=== PATIENT | male | born 1935 | race Caucasian/White ===

== ENCOUNTER 2016-08-02 07:40 | Emergency (ER) | payer MEDICAID ==
[~2016-08-02] VITALS: Ht 170.2 cm; Wt 85.0 kg
[~2016-08-02 07:40] MED LIST: ATOR10TA69 PO; DEXT15DR5 EACHEYE; DONE5TAB33 PO; HYDR-523 PO; IBUP-1510 PO; LAMO25TA4 PO; LOV40 SQ; OLAN5TAB3 PO; OMEP20CA4 PO; ONDA4TAB5 IVP; PHEN100C4 PO; PHEN64.8 PO; PRAV20TA57 PO; ZOLP5TAB8 PO
[2016-08-02] MEDS ORDERED: LORAZEPAM 2MG/ML CPJ IV PRN (08:00)
[2016-08-02 08:38] LABS: BASOPHILS % 0.4 % (0.0-2.0); HEMATOCRIT. 39.2 % (42.0-52.0); HEMOGLOBIN. 13.6 g/dL (14.0-18.0); LYMPHOCYTES % 12.5 % (20.0-50.0); MEAN CORPUSCULAR HEMOGLOBIN 29.5 pg (28.0-32.0); MEAN CORPUSCULAR HGB CONC 34.7 g/dL (31.0-37.0); MEAN PLATELET VOLUME 7.8 fl (7.4-10.4); MONOCYTES % 7.1 % (2.0-8.0); PLATELET 216 x1000/uL (130-400); RED BLOOD CELL COUNT 4.61 mill/uL (4.7-6.1); RED CELL DISTRIBUTION WIDTH 13.6 % (11.6-14.6); WHITE BLOOD COUNT 7.1 x1000/uL (4.5-11.0)
[2016-08-02 08:55] LABS: ANION GAP 13; CALCIUM 8.7 mg/dL (8.5-10.1); CARBON DIOXIDE 28 mEq/L (21-32); CHLORIDE 96 mEq/L (98-107); UREA NITROGEN BLOOD 28 mg/dL (7-21); eGFR > 60 mL/min (>60)
[2016-08-02 08:56] LABS: ALANINE AMINOTRANSFERASE 57 IU/L (13-61); ALBUMIN 3.8 g/dL (3.4-5.0); ETHANOL BLOOD < 10 mg/dL; INDEX HEMOLYSI 1 (1-3); INDEX ICTERIC 1 (1-4); INDEX LIPEMIC 1 (1-3); PHENOBARBITAL 6.7 ug/mL (15.0-40.0); PHENYTOIN 5.2 ug/mL (10-20)
[2016-08-02] MEDS ORDERED: PHENYTOIN SODIUM EXTENDED 100MG CAPSULE PO ONE (09:45)
[2016-08-02] MEDS ORDERED: SODIUM CHLORIDE 0.9% 1,000 ML IV ONE (09:45)
[2016-08-02 13:00] VITALS: BP 110/74
== END 2016-08-02 13:40 ==
LOC: ER 07:56
DX: R56.9 Unspecified convulsions (principal); F41.9 Anxiety disorder, unspecified; E78.00 Pure hypercholesterolemia, unspecified; F03.90 Unspecified dementia, unspecified severity, without behavioral disturbance, psychotic disturbance, mood disturbance, and anxiety; I10 Essential (primary) hypertension; Z79.1 Long term (current) use of non-steroidal anti-inflammatories (NSAID); Z79.899 Other long term (current) drug therapy
CPT/HCPCS: 36415; 80053; 80184; 80185; 85025; 96360; 96361; 99285; G0482; J7030; Z7610

== ENCOUNTER 2016-08-10 07:26 | Emergency (ER) | payer MEDICAID ==
[~2016-08-10] VITALS: Ht 170.2 cm; Wt 75.0 kg
[2016-08-10 08:42] LABS: CARBON DIOXIDE 30 mEq/L (21-32); CHLORIDE 100 mEq/L (98-107); ETHANOL BLOOD < 10 mg/dL; PHENOBARBITAL 14.6 ug/mL (15.0-40.0); PHENYTOIN 6.8 ug/mL (10-20)
[2016-08-10 08:43] LABS: BASOPHILS % 0.6 % (0.0-2.0); EOSINOPHILS % 3.1 % (0.0-5.0); HEMATOCRIT. 39.1 % (42.0-52.0); HEMOGLOBIN. 13.5 g/dL (14.0-18.0); LYMPHOCYTES % 16.9 % (20.0-50.0); MEAN CORPUSCULAR HEMOGLOBIN 30.1 pg (28.0-32.0); MEAN CORPUSCULAR VOLUME 87.2 fL (80.0-94.0); MEAN PLATELET VOLUME 7.5 fl (7.4-10.4); NEUTROPHILS % 71.4 % (40.0-76.0); PLATELET 271 x1000/uL (130-400); RED BLOOD CELL COUNT 4.49 mill/uL (4.7-6.1); RED CELL DISTRIBUTION WIDTH 13.6 % (11.6-14.6)
[2016-08-10 11:40] VITALS: BP 120/82
== END 2016-08-10 11:50 | disposition home or self-care (01) ==
LOC: ER 07:38
DX: F41.9 Anxiety disorder, unspecified (principal); I10 Essential (primary) hypertension; E78.00 Pure hypercholesterolemia, unspecified; F03.90 Unspecified dementia, unspecified severity, without behavioral disturbance, psychotic disturbance, mood disturbance, and anxiety; Z79.899 Other long term (current) drug therapy
CPT/HCPCS: 36415; 80053; 80184; 80185; 85025; 99284; G0482; Z7610

== ENCOUNTER 2017-02-27 01:19 | Emergency (ER) | payer MEDICAID ==
[~2017-02-27] VITALS: Ht 175.3 cm; Wt 82.0 kg
[~2017-02-27 01:19] MED LIST changes: -IBUP-1510 PO; +IBUP-2030 PO
[2017-02-27 03:36] LABS: BASOPHILS % 0.8 % (0.0-2.0); EOSINOPHILS % 2.6 % (0.0-5.0); HEMATOCRIT. 38.4 % (42.0-52.0); HEMOGLOBIN. 13.2 g/dL (14.0-18.0); LYMPHOCYTES % 11.3 % (20.0-50.0); MEAN CORPUSCULAR HEMOGLOBIN 30.1 pg (28.0-32.0); MEAN CORPUSCULAR VOLUME 87.1 fL (80.0-94.0); MEAN PLATELET VOLUME 7.7 fl (7.4-10.4); MONOCYTES % 10.5 % (2.0-8.0); NEUTROPHILS % 74.8 % (40.0-76.0); PLATELET 179 x1000/uL (130-400); RED BLOOD CELL COUNT 4.41 mill/uL (4.7-6.1); RED CELL DISTRIBUTION WIDTH 14.6 % (11.6-14.6)
[2017-02-27 03:43] LABS: PROTHROMBIN TIME 10.7 sec (9.4-11.6)
[2017-02-27 03:52] LABS: CARBON DIOXIDE 28 mEq/L (21-32); CHLORIDE 99 mEq/L (98-107); TROPONIN I < 0.02 ng/mL (0.00-0.04)
[2017-02-27 07:24] VITALS: BP 126/71
[2017-02-27 07:37] LABS: CLARITY URINE CLEAR (CLEAR); COLOR URINE YELLOW (YELLOW); KETONES URINE NEGATIVE (NEGATIVE); LEUKOCYTE ESTERASE URINE NEGATIVE (NEGATIVE); NITRITE URINE NEGATIVE (NEGATIVE); OCCULT BLOOD URINE NEGATIVE (NEGATIVE); PH URINE 6.5 (4.5-8.0); PROTEIN URINE NEGATIVE (NEGATIVE); UROBILINOGEN URINE 0.2 E.U./dL (0.2-1.0)
== END 2017-02-27 07:57 | disposition home or self-care (01) ==
LOC: ER 01:19
DX: K57.30 Diverticulosis of large intestine without perforation or abscess without bleeding (principal); R56.9 Unspecified convulsions; F20.9 Schizophrenia, unspecified; I10 Essential (primary) hypertension; E78.00 Pure hypercholesterolemia, unspecified; F03.90 Unspecified dementia, unspecified severity, without behavioral disturbance, psychotic disturbance, mood disturbance, and anxiety; F41.9 Anxiety disorder, unspecified
CPT/HCPCS: 36415; 74177; 80053; 81003; 83690; 83880; 84484; 85025; 85610; 93005; 99285; Z7610

== ENCOUNTER 2017-03-10 10:59 | Emergency (ER) | payer MEDICAID ==
[~2017-03-10] VITALS: Ht 175.3 cm; Wt 75.0 kg
[2017-03-10 11:27] VITALS: BP 117/63
[2017-03-10 11:33] LABS: CLARITY URINE CLEAR (CLEAR); COLOR URINE YELLOW (YELLOW); KETONES URINE NEGATIVE (NEGATIVE); LEUKOCYTE ESTERASE URINE NEGATIVE (NEGATIVE); NITRITE URINE NEGATIVE (NEGATIVE); OCCULT BLOOD URINE NEGATIVE (NEGATIVE); PH URINE 6.5 (4.5-8.0); PROTEIN URINE NEGATIVE (NEGATIVE); SPECIFIC GRAVITY URINE 1.016 (1.005-1.030)
[2017-03-10 11:40] LABS: BASOPHILS % 0.7 % (0.0-2.0); EOSINOPHILS % 1.9 % (0.0-5.0); HEMATOCRIT. 38.6 % (42.0-52.0); HEMOGLOBIN. 13.2 g/dL (14.0-18.0); LYMPHOCYTES % 26.7 % (20.0-50.0); MEAN CORPUSCULAR HEMOGLOBIN 29.2 pg (28.0-32.0); MEAN CORPUSCULAR VOLUME 85.4 fL (80.0-94.0); MEAN PLATELET VOLUME 6.9 fl (7.4-10.4); MONOCYTES % 11.4 % (2.0-8.0); NEUTROPHILS % 59.3 % (40.0-76.0); PLATELET 289 x1000/uL (130-400); RED BLOOD CELL COUNT 4.52 mill/uL (4.7-6.1); RED CELL DISTRIBUTION WIDTH 14.1 % (11.6-14.6)
[2017-03-10 11:54] LABS: CARBON DIOXIDE 31 mEq/L (21-32); CHLORIDE 100 mEq/L (98-107); ETHANOL BLOOD < 10 mg/dL
[2017-03-10 12:05] LABS: *AMPHETAMINES SCREEN URINE NEGATIVE (NEGATIVE); *BARBITURATES SCREEN URINE PRESUMTIVE POSITIVE (NEGATIVE); *BENZODIAZEPINES SCREEN URINE NEGATIVE (NEGATIVE); *COCAINE SCREEN URINE NEGATIVE (NEGATIVE); CANNABINOID URINE SCREEN NEGATIVE (NEGATIVE); METHADONE URINE SCREEN NEGATIVE (NEGATIVE); OPIATES URINE SCREEN NEGATIVE (NEGATIVE); PHENCYCLIDINE URINE SCREEN NEGATIVE (NEGATIVE)
== END 2017-03-10 13:07 | disposition home or self-care (01) ==
LOC: ER 11:38
DX: H60.91 Unspecified otitis externa, right ear (principal); F41.0 Panic disorder [episodic paroxysmal anxiety]; E16.2 Hypoglycemia, unspecified; F20.9 Schizophrenia, unspecified; I10 Essential (primary) hypertension; E78.00 Pure hypercholesterolemia, unspecified; F03.90 Unspecified dementia, unspecified severity, without behavioral disturbance, psychotic disturbance, mood disturbance, and anxiety; F13.10 Sedative, hypnotic or anxiolytic abuse, uncomplicated; G40.909 Epilepsy, unspecified, not intractable, without status epilepticus
CPT/HCPCS: 36415; 80053; 80305; 81003; 82962; 85025; 99284; G0482

== ENCOUNTER 2017-05-02 21:30 | Emergency (ER) | payer MEDICAID ==
[~2017-05-02] VITALS: Ht 165.1 cm; Wt 64.0 kg
[2017-05-03] MEDS ORDERED: AMOXICILLIN/POTASSIUM CLAVULANATE 875/125MG TAB PO ONE (01:45)
[2017-05-03] MEDS ORDERED: IBUPROFEN 600MG TABLET PO ONE (01:45)
[2017-05-03 03:53] VITALS: BP 126/63
== END 2017-05-03 05:13 | disposition home or self-care (01) ==
LOC: ER 21:37
DX: H66.90 Otitis media, unspecified, unspecified ear (principal); E78.00 Pure hypercholesterolemia, unspecified; F03.90 Unspecified dementia, unspecified severity, without behavioral disturbance, psychotic disturbance, mood disturbance, and anxiety; F20.9 Schizophrenia, unspecified; G40.909 Epilepsy, unspecified, not intractable, without status epilepticus; Z79.899 Other long term (current) drug therapy
CPT/HCPCS: 70486; 93005; 99284; Z7610

== ENCOUNTER 2017-06-14 07:27 | Emergency (ER) | payer MEDICAID ==
[~2017-06-14] VITALS: Ht 170.2 cm; Wt 90.0 kg
[2017-06-14] MEDS ORDERED: SODIUM CHLORIDE 0.9% 1,000 ML IV ONE (07:56)
[2017-06-14 08:22] LABS: KETONES URINE NEGATIVE (NEGATIVE); LEUKOCYTE ESTERASE URINE NEGATIVE (NEGATIVE); NITRITE URINE NEGATIVE (NEGATIVE); OCCULT BLOOD URINE NEGATIVE (NEGATIVE); PROTEIN URINE TRACE (NEGATIVE); SPECIFIC GRAVITY URINE 1.023 (1.005-1.030)
[2017-06-14 08:33] LABS: CLARITY URINE CLEAR (CLEAR); COLOR URINE YELLOW (YELLOW)
[2017-06-14 08:54] LABS: *AMPHETAMINES SCREEN URINE NEGATIVE (NEGATIVE); *BARBITURATES SCREEN URINE PRESUMTIVE POSITIVE (NEGATIVE); *BENZODIAZEPINES SCREEN URINE NEGATIVE (NEGATIVE); *COCAINE SCREEN URINE NEGATIVE (NEGATIVE)
[2017-06-14 08:55] LABS: CANNABINOID URINE SCREEN NEGATIVE (NEGATIVE); METHADONE URINE SCREEN NEGATIVE (NEGATIVE); OPIATES URINE SCREEN NEGATIVE (NEGATIVE); PHENCYCLIDINE URINE SCREEN NEGATIVE (NEGATIVE)
[2017-06-14] MEDS ORDERED: ONDANSETRON HCL 4MG/2ML VIAL IV ONE (09:00)
[2017-06-14 09:10] LABS: BASOPHILS % 0.4 % (0.0-2.0); CHLORIDE 93 mEq/L (98-107); EOSINOPHILS % 0.2 % (0.0-5.0); LYMPHOCYTES % 9.5 % (20.0-50.0); MEAN CORPUSCULAR HEMOGLOBIN 29.6 pg (28.0-32.0); MEAN CORPUSCULAR VOLUME 84.1 fL (80.0-94.0); MONOCYTES % 6.8 % (2.0-8.0); NEUTROPHILS % 83.1 % (40.0-76.0); PLATELET 243 x1000/uL (130-400); RED CELL DISTRIBUTION WIDTH 14.1 % (11.6-14.6)
[2017-06-14 09:14] LABS: ETHANOL BLOOD < 10 mg/dL
[2017-06-14 09:17] LABS: PHENOBARBITAL 8.9 ug/mL (15.0-40.0)
[2017-06-14 09:26] LABS: CARBAMAZEPINE < 0.5 ug/mL (4-12)
[2017-06-14] MEDS ORDERED: POTASSIUM CHLORIDE 20MEQ TABLET SR PO ONE (09:30)
[2017-06-14] MEDS ORDERED: PHENYTOIN SODIUM 1,000 MG in SODIUM CHLORIDE 0.9% 100 ML IV ONE (10:00)
[2017-06-14 15:35] VITALS: BP 108/78
== END 2017-06-14 15:55 | disposition home or self-care (01) ==
LOC: ER 07:41
DX: R56.9 Unspecified convulsions (principal); E87.6 Hypokalemia; H70.90 Unspecified mastoiditis, unspecified ear; F20.9 Schizophrenia, unspecified; F03.90 Unspecified dementia, unspecified severity, without behavioral disturbance, psychotic disturbance, mood disturbance, and anxiety; E78.00 Pure hypercholesterolemia, unspecified; Z98.890 Other specified postprocedural states
CPT/HCPCS: 36415; 70450; 71045; 80053; 80156; 80165; 80184; 80185; 80305; 81003; 85025; 93005; 96361; 96365; 96375; 99285; G0482; J1165; J2405; J7030; J7050

== ENCOUNTER 2017-10-20 07:29 | Emergency (ER) | payer MEDICAID, OTHER ==
[~2017-10-20] VITALS: Ht 167.6 cm; Wt 82.0 kg
[2017-10-20] MEDS ORDERED: PHENYTOIN SODIUM 100MG/2ML VIAL IV ONE (08:15)
[2017-10-20] MEDS ORDERED: LEVETIRACETAM 500MG PREMIX 100 ML IV ONE (08:15)
[2017-10-20 16:20] VITALS: BP 104/70
== END 2017-10-20 16:58 | disposition home or self-care (01) ==
LOC: ER 07:48
DX: G40.909 Epilepsy, unspecified, not intractable, without status epilepticus (principal); R79.0 Abnormal level of blood mineral; Z79.899 Other long term (current) drug therapy
CPT/HCPCS: 36415; 80185; 96365; 96375; 99284; J1165; J1953; Z7610

== ENCOUNTER 2018-01-04 11:08 | Emergency (ER) | payer OTHER ==
[~2018-01-04] VITALS: Ht 165.1 cm; Wt 64.0 kg
[2018-01-04] MEDS ORDERED: LORAZEPAM 2MG/ML CPJ IV ONE (11:30)
[2018-01-04] MEDS ORDERED: LEVETIRACETAM 500MG PREMIX 100 ML IV ONE (11:30)
[2018-01-04 12:28] LABS: BASOPHILS % 0.8 % (0.0-2.0); EOSINOPHILS % 1.7 % (0.0-5.0); HEMATOCRIT. 32.5 % (42.0-52.0); HEMOGLOBIN. 11.4 g/dL (14.0-18.0); LYMPHOCYTES % 18.6 % (20.0-50.0); MEAN CORPUSCULAR HEMOGLOBIN 30.1 pg (28.0-32.0); MEAN CORPUSCULAR VOLUME 85.5 fL (80.0-94.0); MEAN PLATELET VOLUME 7.2 fl (7.4-10.4); MONOCYTES % 9.6 % (2.0-8.0); NEUTROPHILS % 69.3 % (40.0-76.0); PLATELET 240 x1000/uL (130-400); RED CELL DISTRIBUTION WIDTH 15.2 % (11.6-14.6)
[2018-01-04 12:35] LABS: INR 1.1; PROTHROMBIN TIME 10.7 sec (9.1-11.1)
[2018-01-04 12:40] LABS: CHLORIDE 100 mEq/L (98-107)
[2018-01-04 12:42] LABS: AMMONIA < 10 uMol/L (<32)
[2018-01-04 12:46] LABS: ETHANOL BLOOD < 10 mg/dL
[2018-01-04] MEDS ORDERED: PHENYTOIN SODIUM 750 MG in SODIUM CHLORIDE 0.9% 100 ML IV NR (13:00)
[2018-01-04 13:09] LABS: PHENOBARBITAL < 2.1 ug/mL (15.0-40.0)
[2018-01-04 13:54] LABS: CLARITY URINE CLEAR (CLEAR); COLOR URINE YELLOW (YELLOW); KETONES URINE NEGATIVE (NEGATIVE); LEUKOCYTE ESTERASE URINE NEGATIVE (NEGATIVE); NITRITE URINE NEGATIVE (NEGATIVE); OCCULT BLOOD URINE NEGATIVE (NEGATIVE); PROTEIN URINE NEGATIVE (NEGATIVE); SPECIFIC GRAVITY URINE 1.011 (1.005-1.030); UROBILINOGEN URINE 0.2 E.U./dL (0.2-1.0)
[2018-01-04 14:10] LABS: *BARBITURATES SCREEN URINE NEGATIVE (NEGATIVE); *BENZODIAZEPINES SCREEN URINE NEGATIVE (NEGATIVE); *COCAINE SCREEN URINE NEGATIVE (NEGATIVE)
[2018-01-04 14:11] LABS: *AMPHETAMINES SCREEN URINE NEGATIVE (NEGATIVE); CANNABINOID URINE SCREEN NEGATIVE (NEGATIVE); METHADONE URINE SCREEN NEGATIVE (NEGATIVE); OPIATES URINE SCREEN NEGATIVE (NEGATIVE); PHENCYCLIDINE URINE SCREEN NEGATIVE (NEGATIVE)
[2018-01-04 17:56] VITALS: BP 111/74
== END 2018-01-04 18:00 | disposition home or self-care (01) ==
LOC: ER 12:47
DX: R56.9 Unspecified convulsions (principal); K21.9 Gastro-esophageal reflux disease without esophagitis; E78.00 Pure hypercholesterolemia, unspecified; Z79.899 Other long term (current) drug therapy
CPT/HCPCS: 36415; 71045; 80053; 80184; 80185; 80305; 81003; 82140; 83880; 84484; 85025; 85610; 93005; 96365; 96367; 96375; 99285; G0482; J1165; J1953; J2060; J7050

== ENCOUNTER 2018-02-19 23:09 | Inpatient (IN) | payer OTHER ==
[~2018-02-19] VITALS: Ht 172.7 cm; Wt 72.7 kg
[2018-02-20 00:09] LABS: BASOPHILS % 1.1 % (0.0-2.0); HEMATOCRIT. 37.3 % (42.0-52.0); HEMOGLOBIN. 12.6 g/dL (14.0-18.0); LYMPHOCYTES % 21.6 % (20.0-50.0); MEAN CORPUSCULAR HEMOGLOBIN 28.8 pg (28.0-32.0); MEAN CORPUSCULAR VOLUME 85.1 fL (80.0-94.0); MEAN PLATELET VOLUME 7.4 fl (7.4-10.4); MONOCYTES % 8.7 % (2.0-8.0); NEUTROPHILS % 62.6 % (40.0-76.0); PLATELET 234 x1000/uL (130-400); RED BLOOD CELL COUNT 4.39 mill/uL (4.7-6.1); RED CELL DISTRIBUTION WIDTH 14.6 % (11.6-14.6)
[2018-02-20 00:13] LABS: CHLORIDE 100 mEq/L (98-107)
[2018-02-20] MEDS ORDERED: POTASSIUM CHLORIDE 20MEQ TABLET SR PO NR (01:00)
[2018-02-20 04:25] VITALS: BP 106/73
[2018-02-20] MEDS ORDERED: LEVE500T19 PO (05:21)
[2018-02-20] MEDS ORDERED: OLAN10TA19 PO (05:21)
[2018-02-20] MEDS ORDERED: TEMA15CA PO (05:21)
[2018-02-20] MEDS ORDERED: PHEN100C12 PO (05:21)
[2018-02-20] MEDS ORDERED: ABIL5 PO (05:21)
[2018-02-20] MEDS ORDERED: ONDANSETRON HCL 4MG/2ML INJ IV PRN (06:45)
[2018-02-20] MEDS ORDERED: HYDROCODONE/ACETAMINOPHEN 5/325MG TABLET PO PRN (06:45)
[2018-02-20] MEDS ORDERED: ACETAMINOPHEN 325MG TABLET PO PRN (06:45)
[2018-02-20] MEDS ORDERED: IPRATROPIUM/ALBUTEROL 0.5-3(2.5)MG/3ML NEB INH PRN (07:00)
[2018-02-20 08:11] VITALS: BP 121/83
[2018-02-20] MEDS ORDERED: DOCUSATE SODIUM 100MG CAPSULE PO PRN (09:00)
[2018-02-20] MEDS ORDERED: OLANZAPINE 10 MG PO SCH (10:00)
[2018-02-20] MEDS: OLANZAPINE 10MG TABLET PO SCH (10:17)
[2018-02-20] MEDS: LEVETIRACETAM 500MG TABLET PO SCH ×2 (10:48→20:24)
[2018-02-20] MEDS: PHENYTOIN SODIUM EXTENDED 100MG CAPSULE PO SCH ×2 (10:48→18:37)
[2018-02-20] MEDS ORDERED: ARIPIPRAZOLE 5MG TABLET PO SCH (11:30)
[2018-02-20 12:00] VITALS: BP 127/89
[2018-02-20 15:46] VITALS: BP 101/71
[2018-02-20 17:43] LABS: HEMATOCRIT 39.9 % (42.0-52.0); HEMOGLOBIN 13.4 g/dL (14.0-18.0); MEAN CORPUSCULAR HEMOGLOBIN 29.2 pg (28.0-32.0); MEAN CORPUSCULAR VOLUME 86.5 fL (80.0-94.0); PLATELET 243 x1000/uL (130-400); RED BLOOD CELL COUNT 4.61 mill/uL (4.7-6.1); RED CELL DISTRIBUTION WIDTH 14.6 % (11.6-14.6)
[2018-02-20 17:56] LABS: CHLORIDE 100 mEq/L (98-107)
[2018-02-20 17:57] LABS: ETHANOL BLOOD < 10 mg/dL
[2018-02-20 18:01] LABS: D-DIMER 4.7 mg/L FEU (<0.50); PROTHROMBIN TIME 10.5 sec (9.1-11.1)
[2018-02-20 18:02] LABS: CREATINE KINASE 100 IU/L (39-308)
[2018-02-20 18:03] LABS: CREATINE KINASE MB FRACTION 1.9 ng/mL (0.5-3.6)
[2018-02-20 18:09] LABS: ETHANOL BLOOD < 10 mg/dL
[2018-02-20 18:11] LABS: PHOSPHORUS 4.6 mg/dL (2.5-4.9)
[2018-02-20 18:25] LABS: TOTAL IRON BINDING CAPACITY 312 ug/dL (250-450)
[2018-02-20] MEDS: ARIPIPRAZOLE 5MG TABLET PO SCH (18:37)
[2018-02-20 20:08] VITALS: BP 117/72
[2018-02-20] MEDS ORDERED: TEMAZEPAM 15MG CAPSULE PO PRN (21:00)
[2018-02-20 23:54] VITALS: BP 103/74
[2018-02-21 04:00] VITALS: BP 103/58
[2018-02-21 07:56] LABS: BASOPHILS % 0.9 % (0.0-2.0); HEMATOCRIT. 41.8 % (42.0-52.0); MEAN CORPUSCULAR HEMOGLOBIN 28.9 pg (28.0-32.0); MEAN CORPUSCULAR VOLUME 86.3 fL (80.0-94.0); MONOCYTES % 6.2 % (2.0-8.0); NEUTROPHILS % 64.9 % (40.0-76.0); RED BLOOD CELL COUNT 4.85 mill/uL (4.7-6.1); RED CELL DISTRIBUTION WIDTH 14.7 % (11.6-14.6)
[2018-02-21 08:00] VITALS: BP 117/75
[2018-02-21] MEDS: PHENYTOIN SODIUM EXTENDED 100MG CAPSULE PO SCH ×2 (09:14→21:00)
[2018-02-21] MEDS: LEVETIRACETAM 500MG TABLET PO SCH ×2 (09:14→21:00)
[2018-02-21] MEDS: OLANZAPINE 10MG TABLET PO SCH (09:17)
[2018-02-21] MEDS: ARIPIPRAZOLE 5MG TABLET PO SCH ×2 (09:17→16:12)
[2018-02-21 09:20] LABS: PLATELET 225 x1000/uL (130-400)
[2018-02-21 09:52] LABS: CHLORIDE 102 mEq/L (98-107)
[2018-02-21 12:00] VITALS: BP 121/80
[2018-02-21 16:00] VITALS: BP 113/84
[2018-02-21 20:00] VITALS: BP 123/88
[2018-02-22] VITALS (8 sets, daily range): BP systolic 84–118; BP diastolic 51–75
[2018-02-22 07:08] LABS: CHLORIDE 100 mEq/L (98-107)
[2018-02-22 07:46] LABS: BASOPHILS % 0.9 % (0.0-2.0); EOSINOPHILS % 1.3 % (0.0-5.0); HEMATOCRIT. 40.4 % (42.0-52.0); HEMOGLOBIN. 13.6 g/dL (14.0-18.0); LYMPHOCYTES % 18.1 % (20.0-50.0); MEAN CORPUSCULAR HEMOGLOBIN 29.3 pg (28.0-32.0); NEUTROPHILS % 72.7 % (40.0-76.0); RED BLOOD CELL COUNT 4.64 mill/uL (4.7-6.1); RED CELL DISTRIBUTION WIDTH 14.6 % (11.6-14.6)
[2018-02-22] MEDS: ARIPIPRAZOLE 5MG TABLET PO SCH ×2 (08:00→16:54)
[2018-02-22] MEDS: PHENYTOIN SODIUM EXTENDED 100MG CAPSULE PO SCH ×2 (08:01→20:42)
[2018-02-22] MEDS: LEVETIRACETAM 500MG TABLET PO SCH ×2 (08:01→20:42)
[2018-02-22] MEDS: OLANZAPINE 10MG TABLET PO SCH (08:01)
[2018-02-22 08:21] LABS: PLATELET 205 x1000/uL (130-400)
[2018-02-23 04:00] VITALS: BP 96/59
[2018-02-23 08:00] VITALS: BP_SYST 106; BP_SYST 107; BP_SYST 99; BP_DIAS 62; BP_DIAS 68; BP_DIAS 70
[2018-02-23] MEDS: OLANZAPINE 10MG TABLET PO SCH (08:28)
[2018-02-23] MEDS: PHENYTOIN SODIUM EXTENDED 100MG CAPSULE PO SCH (08:29)
[2018-02-23] MEDS: LEVETIRACETAM 500MG TABLET PO SCH (08:29)
[2018-02-23] MEDS: ARIPIPRAZOLE 5MG TABLET PO SCH (08:29)
[2018-02-23 10:35] VITALS: BP 100/50
[2018-02-23 12:00] VITALS: BP 100/50
[2018-02-23 12:38] LABS: *BARBITURATES SCREEN URINE NEGATIVE (NEGATIVE)
[2018-02-23 12:39] LABS: *AMPHETAMINES SCREEN URINE NEGATIVE (NEGATIVE); *BENZODIAZEPINES SCREEN URINE NEGATIVE (NEGATIVE); *COCAINE SCREEN URINE NEGATIVE (NEGATIVE); METHADONE URINE SCREEN NEGATIVE (NEGATIVE); OPIATES URINE SCREEN NEGATIVE (NEGATIVE)
[2018-02-23 12:40] LABS: CANNABINOID URINE SCREEN NEGATIVE (NEGATIVE); PHENCYCLIDINE URINE SCREEN NEGATIVE (NEGATIVE)
== END 2018-02-23 15:41 | disposition home or self-care (01) | DRG 48 ==
LOC: ER 23:09 → EDBEDREQ 02-20 01:25 → EDBEDREQTM 02-20 01:25 → ENRESERV 02-20 02:55 → 7WST 02-20 04:21
PROVIDERS: ADMIT Internal Medicine; ATTEND Internal Medicine
PROC: 4A00X4Z Measurement of Central Nervous Electrical Activity, External Approach (ICD-10-PCS; principal; 2018-02-20)
DX: G90.8 Other disorders of autonomic nervous system (principal); F20.9 Schizophrenia, unspecified; D63.8 Anemia in other chronic diseases classified elsewhere; I31.3 Pericardial effusion (noninflammatory); G40.909 Epilepsy, unspecified, not intractable, without status epilepticus; D64.9 Anemia, unspecified; F03.90 Unspecified dementia, unspecified severity, without behavioral disturbance, psychotic disturbance, mood disturbance, and anxiety; E87.6 Hypokalemia; I10 Essential (primary) hypertension; E78.00 Pure hypercholesterolemia, unspecified; E78.5 Hyperlipidemia, unspecified; I11.9 Hypertensive heart disease without heart failure; M06.9 Rheumatoid arthritis, unspecified; Z59.0 Homelessness
CPT/HCPCS: 36415; 70544; 70551; 71045; 80048; 80185; 80305; 82140; 82550; 82553; 82607; 82728; 82746; 82962; 83540; 83550; 83735; 84100; 84443; 84484; 85027; 85379; 93005; 93306; 93880; 96374; 97162; 97166; 99285; G0482